=== PATIENT | female | born 1975 | race Caucasian/White ===

== ENCOUNTER 2018-06-29 09:47 | Emergency (ER) | payer OTHER ==
[~2018-06-29] VITALS: Ht 162.6 cm; Wt 63.5 kg
[2018-06-29] MEDS ORDERED: ACETAMINOPHEN-1 EAC1 PO (11:07)
[2018-06-29] MEDS ORDERED: ROBAXIN 750 MG750 M1 PO (11:07)
[2018-06-29] MEDS ORDERED: MEDROLDOSEPACK PO (11:07)
[2018-06-29 11:18] VITALS: BP 123/77
== END 2018-06-29 11:18 | disposition home or self-care (01) ==
LOC: M.ERS 09:47
DX: M54.5 Low back pain (principal); Z90.710 Acquired absence of both cervix and uterus; Z88.5 Allergy status to narcotic agent; Z88.8 Allergy status to other drugs, medicaments and biological substances